=== PATIENT | female | born 1965 | race Caucasian/White ===

== ENCOUNTER 2024-12-17 16:50 | Outpatient (OUT) | payer OTHER, SELFPAY ==
--- OUTSIDE RECORDS SUMMARY | 2020-02-08 14:00 | XMS_ITS | Continuity of Care Document ---
Author Organization [facility] Address [address] [place] [address] Phone Care Team Providers Care Fisher Gill Net Name Role Phone BubbaMayur Lu Unavailable Unavailable Procedures Procedure Date Covid Testing [facility] Covid Testing [facility] Results Test Name Date and Time Measure Units Reference Range Abnormal Flag Status Comments Panel Description: SARS-CoV-2, RADHA Final SARS-CoV- 2, RADHA 020 12:30:00 Not Detected Not Detected Final This test was developed and its performance characteristics determinedby [employer]. This test has not been FDA cleared orapproved. This test has been authorized by FDA under an Emergency UseAuthorization (EUA). This test is only authorized for the duration oftime the declaration that circumstances exist justifying theauthorization of the emergency use of in vitro diagnostic tests fordetection of SARS-CoV-2 virus and/or diagnosis of COVID-19 infectionunder section 564(b)(1) of the Act, 21 U.S.C. 360bbb-3(b)(1), unlessthe authorization is terminated or revoked sooner.When diagnostic testing is negative, the possibility of a falsenegative result should be considered in the context of a patient'srecent exposures and the presence of clinical signs and symptomsconsistent with COVID-19. An individual without symptoms of COVID-19and who is not shedding SARS-CoV-2 virus would expect to have anegative (not detected) result in this assay.Performed by:[facility] ([facility]) Panel Description: SARS-CoV-2 Antibody, IgM [facility] SARS-CoV- 2 Antibody, IgM 020 08:52:00 Negative Negative Final This sample do es not contain detectable SARS-CoV-2 IgM antibodies.This negative result does not rule out SARS-CoV-2 infection.Correlation with epidemiologic risk factors and other clinical andlaboratory findings is recommended. Serologic results should not beused as the sole basis to diagnose or exclude recent [id number].P erformed by:[email or web address] ([employer]) Panel Description: SARS-CoV-2 Antibody, IgG Fin al SARS-CoV- 2 Antibody, IgG 020 07:01:00 Negative Negative Final This sample do es not contain detectable SARS-CoV-2 IgG antibodies.This negative result does not rule out SARS-CoV-2 infection.Correlation with epidemiologic risk factors and other clinical andlaboratory findings is recommended. Serologic results should not beused as the sole basis to diagnose or exclude recent [id number].T his assay was performed using the Smith SARS-CoV-2 IgG assay.Performed by:[email or web address] ([employer]) Advance Directives Directive Yes / No Effective Date File Name No Information Encounters Encounter Description Practice Location Reason(s) For Visit Diagnoses Date Provider Providers Copied on Encounter [facility], [address] [place] [address], [id number], tel:[phone] COVID ECHD Encounter for screening for other viral disease Bubbai DO Merchant. [address], [place], [id number], [place]. tel:[phone] [facility], [address], [place], [id number], tel:[phone] COVID ECHD Encounter for screening for other viral disease Visci DO Merchant. [address], [place], [id number], [place]. tel:[phone] Family History Family Member Type Diagnosis Age At Onset No Information Payers Payer name Insurance type Covered alliance party ID Authoriza tion(s) Medical [facility] [id number] Social History Type Description Quantity Date Captured Comments Alcohol Use Details Unknown Caffeine Use Details Unknown Tobacco Use Status No Information Smoking Status No Information Sex Female Sexual Orientation Straight or heterosexual Gender Identity Female Chief Complaint And Reason For Visit No Information Reason For Referral Reason For Referral No Information History Of Present Illness Encounter Date Complaint History Of Prese nt Illness No Information Functional Status Date Functional Assessmen t No Information Instructions Date Instruction Additional Infor mation No Information Assessments Type Assessment Date assessment Encounter for screening for othe r viral disease Patient Care Teams Name Effective Dates (start - stop) Status Members No Information
--- OUTSIDE RECORDS SUMMARY | 2024-12-17 16:56 | XMS_ITS | Clinical Summary ---
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 Other chronic pain 12/30/2022 Chronic fatigue 12/30/2022 Resolved Problems Problem Noted Date Diagnosed Date Resolved Date Benign essential hypertension 12/30/2022 03/26/2024 Immunizations Immunization Administration Dates Next Due Influenza, Unspecified 04/28/2023 Influenza, injectable, quadrivalent 04/23/2022 Influenza, injectable, quadrivalent, preservativ e free 04/29/2022 Influenza, seasonal, intradermal, preservative f ree 05/01/2020,04/27/2019 Tdap 06/04/2022 Zoster, Recombinant 08/14/2020,05/30/2020 Family History Medical History Relation Name Comments Brain Aneurysm Brother 2 No Known Problems Daughter Heart disease Father Paco Hyperlipidemia Father Paco Cancer Mother Vicenta Diabetes Mother Vicenta Hypertension Mother Vicenta Lung cancer Mother Vicenta Relation Name Status Comments Brother 1 Brother 2 Alive Brother 3 Alive Brother 4 Alive Brother 5 Alive Brother 6 Alive Brother 7 Alive Daughter Alive 1 daughter Father Paco Mother Vicenta Sister Alive 1 sister Social History Tobacco Use Types Packs/Day Years Used Date Smoking Tobacco: Never Smokeless Tobacco: Never Tobacco Cessation:Counseling Given: Not Answered Alcohol Use Standard Drinks/Week Comments Not Currently 4 (1 standard drink = 0.6 oz pure alcohol) caffeine intake : 1-2 cups per day ; coffee Humiliation, Afraid, Rape, and Kick questionnair e Answer Date Recorded Within the last year, have y ou been afraid of your partner or ex-partner? No 06/17/2023 Within the last year, have y ou been humiliated or emotionally abused in other ways by your partner or ex-partner? Patient declined 06/17/2023 Within the last year, have y ou been kicked, hit, slapped, or otherwise physically hurt by your partner or ex-partner? No 06/17/2023 Within the last year, have y ou been raped or forced to have any kind of sexual activity by your partner or ex-partner? No 06/17/2023 Social Connection and Isolat ion Panel [NHANES] Answer Date Recorded In a typical week, how many times do you talk on the phone with family, friends, or neighbors? Patient declined 06/17/2023 How often do you get togethe r with friends or relatives? Patient declined 06/17/2023 How often do you attend chur or holiness services? Patient declined 06/17/2023 Do you belong to any clubs o r organizations such as jew groups, unions, fraternal or athletic groups, or school groups? Yes 06/17/2023 How often do you attend meet ings of the clubs or organizations you belong to? More than 4 times per year 06/17/2023 Are you , , di vorced, , never , or living with a partner? 06/17/2023 AUDIT-C Answer Date Recorded Q1: How often do you have a drink containing alc ohol? 2-4 times a month 06/17/2023 Q2: How many drinks containi ng alcohol do you have on a typical day when you are drinking? 1 or 2 06/17/2023 Q3: How often do you have si x or more drinks on one occasion? Never 06/17/2023 Overall Financial Resource Strain (CARDIA) Answe r Date Recorded How hard is it for you to pa y for the very basics like food, housing, medical care, and heating? Not hard at all 06/17/2023 Hunger Vital Sign Answer Date Recorded Within the past 12 months, y ou worried that your food would run out before you got the money to buy more. Never true 06/17/20 23 Within the past 12 months, t he food you bought just didn't last and you didn't have money to get more. Never true 06/17/2023 PRAPARE - Transportation Answer Date Re corded In the past 12 months, has l ack of transportation kept you from medical appointments or from getting medications? No 05/29 In the past 12 months, has l ack of transportation kept you from meetings, work, or from getting things needed for daily living? No 06/17/2023 Housing Stability Vital Sign Answer Frantz e Recorded In the last 12 months, was t here a time when you were not able to pay the mortgage or rent on time? No 06/17/2023 In the last 12 months, how many places have you lived? 1 06/17/2023 In the last 12 months, was t here a time when you did not have a steady place to sleep or slept in a jail (including now)? No 06/17/2023 Comments Unknown Sex and Gender Information Value Date Recorded Sex Assigned at Not on file Legal Sex Female 7:34 PM EDT Gender Identity Not on file Sexual Orientation Not on file Last Filed Vital Signs Vital Sign Reading Time Taken Comments Blood Pressure 120/70 03/26/2024 10:03 AM EDT Pulse 81 03/26/2024 10:03 AM EDT Temperature 36.2 C (97.2 F) 03/26/2024 10:03 AM EDT Respiratory Rate 17 06/18/2023 8:00 AM EST Oxygen Saturation 98% 03/26/2024 10:03 AM EDT Inhaled Oxygen Concentration - - Weight 67.1 kg (148 lb) 03/26/2024 10:03 AM EDT Height 165.1 cm (5' 5 ) 03/26/2024 10:03 AM EDT Body Mass Index 24.63 03/26/2024 10:03 AM EDT Plan of Treatment Health Maintenance Due Date Last Done Comments CT Colonography 1965 Colonoscopy 1965 FIT 1964 FOBT 1965 Sigmoidoscopy 1964 Pap Smear 1985 Cervical Cancer Screening 1994 HPV/Cotest 1994 Mammogram 08/13/2023 08/13/2022, 07/18/2020 Influenza Vaccine (Season Ended) 2025 04/28/2023, 04/29/2022, 04/23/2022, Additional history exists Colorectal Cancer Screening 04/25/2027 FIT-DNA 04/25/2027 04/25/2024, 05/29, 06/20/2020 Procedures Procedure Name Priority Date/Time Associated Diagnosis Comments LAB COLOGUARD COLON CANCER SCREEN Routine 04/25/2024 10:00 AM EDT Encounter for screening for malignant neoplasm of colon BI MAMMOGRAM SCREENING BILATERAL Routine 08/13/2022 Encounter for screening mammogram for malignant neoplasm of breast Encounter for immunization Encounter for general adult medical examination without abnormal findings from Last 3 Months or Most Recently Relevant to Health Maintenance Results * Cologuard?? colon cancer screening (04/25/2024 10:00 AM EDT) NONINV COLON CA DNA+OCC BLD SCRN STL-IMP Negative Negative 05/01/2024 11:40 AM EDT [facility] (CLIA #:[id number]) Comment: NEGATIVE TEST RESULT. A negative Cologuard result indicates a low likelihood that a colorectal cancer (CRC) or advanced adenoma (adenomatous polyps with more advanced pre-malignant features) is present. The chance that a person with a negative Cologuard test has a colorectal cancer is less than 1 in 1500 (negative predictive value >99.9%) or has an advanced adenoma is less than 5.3% (negative predictive value 94.7%). These data are based on a prospective cross-sectional study of 10,000 individuals at average risk for colorectal cancer who were screened with both Cologuard and colonoscopy. (Samantha Kim al, N Engl J Med 2014;370(14):6135-7005) The normal value (reference range) for this assay is negative. COLOGUARD RE-SCREENING RECOMMENDATION: Periodic colorectal cancer screening is an important part of preventive healthcare for asymptomatic individuals at average risk for colorectal cancer. Following a negative Cologuard result, the [place] [employer] Society and U.S. Multi-Society Task Force screening guidelines recommend a Cologuard re-screening interval of 3 years. References: [place] [employer] Guideline for Colorectal Cancer Screening: https://www.cancer.org/cancer/dezkc-ltkxjo-fdvwoa/omdngmysc-fyoccbxba-msrsnmg/ac s-rec ommendations.html.; Gavin DK, Gela CR, Rima DotsonK, Colorectal Cancer Screening: Recommendations for Physicians and Patients from the U.S. Multi-Society Task Force on Colorectal Cancer Screening , Am J Gastroenterology 2017; 112:2607-9176. TEST DESCRIPTION: Composite algorithmic analysis of stool DNA-biomarkers with hemoglobin immunoassay. Quantitative values of individual biomarkers are not reportable and are not associated with individual biomarker result reference ranges. Cologuard is intended for colorectal cancer screening of adults of either sex, 45 years or older, who are at average-risk for colorectal cancer (CRC). Cologuard has been approved for use by the U.S. FDA. The performance of Cologuard was established in a cross sectional study of average-risk adults aged 50-84. Cologuard performance in patients ages 45 to 49 years was estimated by sub-group analysis of near-age groups. Colonoscopies performed for a positive result may find as the most clinically significant lesion: colorectal cancer [4.0%], advanced adenoma (including sessile serrated polyps greater than or equal to 1cm diameter) [20%] or non- advanced adenoma [31%]; or no colorectal neoplasia [45%]. These estimates are derived from a prospective cross-sectional screening study of 10,000 individuals at average risk for colorectal cancer who were screened with both Cologuard and colonoscopy. (Samantha Kim al, N Engl J Med 2014;370(14):2816-7714.) Cologuard may produce a false negative or false positive result (no colorectal cancer or precancerous polyp present at colonoscopy follow up). A negative Cologuard test result does not guarantee the absence of CRC or advanced adenoma (pre-cancer). The current Cologuard screening interval is every 3 years. ([place] [employer] Society and U.S. Multi-Society Task Force). Cologuard performance data in a 10,000 patient pivotal study using colonoscopy as the reference method can be accessed at the following location: www.[employer].com/results. Additional description of the Cologuard test process, warnings and precautions can be found at www.cologuard.com. Stool specimen (specimen) 04/25/2024 10:00 AM EDT 04/28/2024 8:14 AM EDT us Edith Fuentes NP LAB MOLECULAR DIAGNOSTICS OR DERABLES Final Result .[facility] (CLIA #:[id number]) [address] [place] [address] [phone] [facility] (CLIA #:[id number]) [address] [place] [address] * Bilateral screening mammogram (08/13/2022) Anatomical Region Laterality Modality Breast Bilateral Mammography Impressions 08/13/2022 12:00 AM EST NO MAMMOGRAPHIC EVIDENCE OF MALIGNANCY. ROUTINE FOLLOW-UP IS RECOMMENDED IN ONE YEAR. RESULT CODE: 2 Benign Findings(s) DENSITY CODE: 2 (approximately 25-50% glandular) FOLLOW UP: 1YR The false-negative rate of mammography is approximately 10-percent. Management of a palpable abnormality must be based on clinical grounds. Patient was entered into a reminder system with a target due date for the next mammogram. Impression dictated by: Maddi Jay M.D.08/13/2022 7:40 AM Dictation Location: [facility] Transcribed By: ENEDINA 08/13/22739 Dictated By: Maddi Jay MD 08/13/2237 Signed By: <Electronically signed by MD Maddi Jay in OV> 08/13/22739 Narrative 08/13/2022 12:00 AM EST PERFORMED AT [facility] LOCATION:[place] [address] [facility] [place] [id number] Mammography Report Signed Patient: Andreea Bacon MR#: [id number] : 1965 Acct:[id number] Age/Sex: 56 / F ADM Date: 08/12/22 Loc: [place] Room: Type: SUELLEN MINORI Attending Dr: Edith Fuentes CART DRIVER-C Copies to: KARLIE Malave Ordering Provider: KARLIE Malave Date of Service: 08/12/22 MM/MM screening mammo BI w/CAD: screening;Encounter for screening mammogram for malignant ne CLINICAL DATA: Screening for malignancy. BILATERAL SCREENING MAMMOGRAMS - FULL FIELD DIGITAL WITH TOMOSYNTHESIS AND CAD Tomosynthesis craniocaudal and mediolateral oblique views of both breasts were obtained using low- dose digital technique. Comparison is made to the prior study from July 17, 2020. This examination was reviewed with the aid of CAD. There is moderate scattered fibroglandular density. Benign calcifications are present. There are no developing masses, typically malignant calcifications or architectural distortion. There has been no significant interval change. MM/MM screening mammo BI w/CAD Procedure Note CONVERSION, GENERIC - 01/31/2023 PERFORMED AT [facility] LOCATION:[place] [id number] Mammography Report Signed Patient: Andreea Bacon EMR#: [id number] : 1965Acct:[id number] Age/Sex: 56 / FADM Date: 08/12/22 Loc: [place] Room:Type: SUELLEN MINORI Attending Dr: Edith Fuentes CART DRIVER-C Copies to: KARLIE Malave Ordering Provider: KARLIE Malave Date of Service: 08/12/22 MM/MM screening mammo BI w/CAD:screening;Encounter for screening mammogram for malignant ne CLINICAL DATA: Screening for malignancy. BILATERAL SCREENING MAMMOGRAMS - FULL FIELD DIGITAL WITH TOMOSYNTHESIS ANDCAD Tomosynthesis craniocaudal and mediolateral oblique views of both breastswere obtained using low- dose digital technique. [facility] This examination was reviewed with the aid of CAD. There is moderate scattered fibroglandular density. Benign calcificationsare present. There are no developing masses, typically malignant calcifications or architecturaldistortion. There has been no significant interval change. MM/MM screening mammo BI w/CAD IMPRESSION: NO MAMMOGRAPHIC EVIDENCE OF MALIGNANCY. ROUTINE FOLLOW-UP IS RECOMMENDED IN ONE YEAR. RESULT CODE: 2 Benign Findings(s) DENSITY CODE: 2 (approximately 25-50% glandular) FOLLOW UP: 1YR The false-negative rate of mammography is approximately 10-percent. Management of a palpable abnormality must be based on clinical grounds. Patient was entered into a reminder system with a target due date for thenext mammogram. Impression dictated by: Maddi Jay M.D.08/13/2022 7:40 AM Dictation Location: [facility] Transcribed By: [facility] 08/13/22 0740 Dictated By: Maddi Jay MD 08/13/22 0737 Signed By: <Electronically signed by MD Maddi Jay in OV> 08/13/22 0740 us Edith Hannah Case CART DRIVER IMG BI PROCEDURES Final Resu lt from Last 3 Months or Most Recently Relevant to Health Maintenance Insurance [employer] Care Teams Hi Teacher Relationship Specialty Start Date End Date Ashley Colon MD [address], [place] [id number] PCP - General Family Medicine 12/24/22 Ashley Colon MD [address] [place] [address] PCP - Medical [place] [employer] 08/16/15 07/27/99 Edith Fuentes NP [address] [place] [address] Nurse Practitioner Family Medicine 12/24/22
--- OUTSIDE RECORDS SUMMARY | 2024-12-17 16:56 | XMS_ITS | Encounter Summary ---
Author Organization [facility] Address [address] [place] [address] Care Team Providers Care Passenger Tire Inspector Name Role Phone Ashley Colon MD Primary Care Provider [phone] Edith Fuentes NP Unavailable [phone] Ashley Colon MD Unavailable [phone] Encounter Details Date Type Department Care Team (Late st Contact Info) Description 03/30/2024 Orders Only [facility] [address] [place] [id number] Edith Fuentes NP [address] [place] [address] Social History Tobacco Use Types Packs/Day Years Used Date Smoking Tobacco: Never Smokeless Tobacco: Never Alcohol Use Standard Drinks/Week Comments Not Currently [...] 06/17/2023 How often do you attend chur ch or jewish services? Patient declined 06/17/2023 Do you belong to any clubs o r organizations such as muslim groups, unions, fraternal or athletic groups, or [...] place to sleep or slept in a usp (including now)? No 06/17/2023 Comments Unknown Sex and Gender Information Value Date Recorded Sex Assigned at Not on file Legal Sex Female 7:34 PM EDT Gender Identity Not on file Sexual Orientation Not on file documented as of this encounter Plan of Treatment Not on file documented as of this encounter Procedures Procedure Name Priority Date/Time Associated Diagnosis Comments PROTHROMBIN TIME-INR Routine 03/26/2024 11:29 AM EDT CBC Routine 03/26/2024 11:29 AM EDT BASIC METABOLIC PANEL Routine 03/26/2024 11:29 AM EDT documented in this encounter Results * Basic metabolic panel (03/26/2024 11:29 AM EDT) Blood Venous blood specimen / Unknown Edith L [facility] RADIOLOGY DIRECTOR LAB BLOOD ORDERABLES Final R esult * Protime-INR (03/26/2024 11:29 AM EDT) Blood Venous blood specimen / Unknown Edith [facility] RADIOLOGY DIRECTOR LAB BLOOD ORDERABLES Final R esult * CBC (03/26/2024 11:29 AM EDT) Blood Venous blood specimen / Unknown Edith [facility] RADIOLOGY DIRECTOR LAB BLOOD ORDERABLES Final R esult documented in this encounter Visit Diagnoses Not on filedocumented in this encounter Care Teams Passenger Tire Inspector Relationship Specialty Start Date End Date Ashley Colon MD [address] [place] [address] PCP - General Family Medicine 12/24/22 Ashley Colon MD [address] [place], [place] [id number] PCP - Medical [place] [employer] 08/16/15 07/27/99 Edith Fuentes NP [address] [place], [place] [phone] Nurse Practitioner Family Medicine 12/24/22 documented as of this encounter
--- OUTSIDE RECORDS SUMMARY | 2024-12-17 16:56 | XMS_ITS | Encounter Summary ---
Author Organization [facility] Address [address] [place] [address] Care Team Providers Care Fryer Operator Name Role Phone Ashley Colon MD Primary Care Provider [phone] Edith Fuentes [employer] VICE PRESIDENT Unavailable [phone] Ashley Colon MD Unavailable [phone] Encounter Details Date Type Department Care Team (Late st Contact Info) Description 06/17/2023 Orders Only [facility] [address] [place] [address] Justin Gross, DO [address] [place] [address] Social History Tobacco Use Types Packs/Day Years Used Date Smoking Tobacco: Never Smokeless Tobacco: Never Alcohol Use Standard Drinks/Week Comments Never 0 (1 standard drink = 0.6 oz pur e alcohol) Humiliation, Afraid, Rape, and Kick questionnair e [...] often do you attend chur ch or oriental orthodox services? Patient declined 06/17/2023 Do you belong to any clubs o r organizations such as orthodoxy groups, unions, fraternal or athletic groups, or [...] place to sleep or slept in a custodial (including now)? No 06/17/2023 Comments Unknown Sex and Gender Information Value Date Recorded Sex Assigned at Not on file Legal Sex Female 7:34 PM EDT Gender Identity Not on file Sexual Orientation Not on file COVID-19 Exposure Response Date Recorded In the last 10 days, have yo u been in contact with someone who was confirmed or suspected to have Coronavirus/COVID-19? No / Unsure 06/17/2023 7:35 AM EST documented as of this encounter Functional Status * Audit-C Score Answer Date of Assessment Author 2 06/17/2023 7:34 AM EST Mychart, Generic * Q1: How often do you have a drink containing alcohol? Answer Date of Assessment Author 2-4 times a month 06/17/2023 7:34 AM EST Mychart , Generic * Q2: How many drinks containing alcohol do you have on a typical day when you are drinking? Answer Date of Assessment Author 1 or 2 06/17/2023 7:34 AM EST Mychart, Generic * Q3: How often do you have six or more drinks on one occasion? Answer Date of Assessment Author Never 06/17/2023 7:34 AM EST Mychart, Generic documented as of this encounter Plan of Treatment Not on file documented as of this encounter Procedures Procedure Name Priority Date/Time Associated Diagnosis Comments NICOTINE METABOLITE, QUAL ([facility]) Routine 03/26/2023 9:22 AM EDT CBC Routine 03/26/2023 9:22 AM EDT TSH Routine 03/26/2023 9:22 AM EDT LIPID PANEL Routine 03/26/2023 9:22 AM EDT COMPREHENSIVE METABOLIC PANEL Routine 03/26/2023 9:22 AM EDT documented in this encounter Results * CBC (03/26/2023 9:22 AM EDT) Blood Venous blood specimen / Unknown us Justin P Kuns DO LAB BLOOD ORDERABLES Final Resul t * Comprehensive metabolic panel (03/26/2023 9:22 AM EDT) Blood Venous blood specimen / Unknown us Justin Sanchezs DO LAB BLOOD ORDERABLES Final Resul t * Lipid panel (03/26/2023 9:22 AM EDT) Blood Venous blood specimen / Unknown us Justin Sanchezs DO LAB BLOOD ORDERABLES Final Resul t * TSH (03/26/2023 9:22 AM EDT) Blood Venous blood specimen / Unknown Justin Gross DO LAB BLOOD ORDERABLES Final Resul t * NICOTINE METABOLITE, QUAL ([facility]) (03/26/2023 9:22 AM EDT) Justin Gross DO LAB BLOOD ORDERABLES Final Resul t documented in this encounter Visit Diagnoses Not on filedocumented in this encounter Care Teams Fryer Operator Relationship Specialty Start Date End Date Ashley Colon MD [address] [place] [address] PCP - General Family Medicine 12/24/22 Ashley Colon MD [address], [place] [id number] PCP - Medical [place] [employer] 08/16/15 07/27/99 Edith Fuentes NP [address], [place] [phone] Nurse Practitioner Family Medicine 12/24/22 documented as of this encounter
--- NOTE | 2024-12-17 17:00 | US_ITS ---
[address] [address] Patient Name: BALWINDER YE MRN: [id number] date: 1965 Sex: F Assigned Patient Location: US Current Patient Location: US Accession/Order Number: [id number] Exam Date: 12/17/2024 18:12 Report Date: 12/17/2024 18:13 At the request of: EMPERATRIZ DAWKINS Procedure: US renal BI Bilateral Renal Ultrasound HISTORY: Left flank pain for 3 days COMPARISON: None RIGHT kidney measures 9.4 cm. LEFT kidney measures 9.8 cm. Hydronephrosis: None RENAL STONE: No shadowing renal calculus is seen. RENAL LESIONS: No renal lesion identified. URINARY BLADDER: Unremarkable REPRODUCTIVE STRUCTURES Not assessed anechoic, right hepatic cyst. IMPRESSION : No hydronephrosis. Impression dictated by: Merrill Gonzalez M.D. 12/17/2024 6:13 PM Dictation Location: [place] [address] Electronically authenticated by: [id number] Y Date: 12/17/2024 18:13
--- NOTE | 2024-12-17 17:01 | XR_ITS ---
The [address] [address] Patient Name: BALWINDER YE MRN: [id number] date: 1965 Sex: F Assigned Patient Location: US Current Patient Location: US Accession/Order Number: [id number] Exam Date: 12/17/2024 18:15 Report Date: 12/17/2024 18:16 At the request of: EMPERATRIZ DAWKINS Procedure: XR abdomen 1V Single view of abdomen COMPARISON: None HISTORY: Left abdominal pain. THORAX: Lung bases unremarkable. FREE AIR: Supine position limits assessment BOWEL: No gaseous intestinal distention. STOOL: Moderate burden of stool throughout the colon. RENAL STONES: No significant stones present. VASCULAR CALCIFICATIONS: Unremarkable SOFT TISSUE: Unremarkable BONES: Unremarkable POSTSURGICAL CHANGES: None XR/XR abdomen 1V IMPRESSION: Moderate constipation Impression dictated by: Merrill Gonzalez M.D. 12/17/2024 6:16 PM Dictation Location: [facility] Electronically authenticated by: [id number] Y Date: 12/17/2024 18:16
== END 2024-12-17 16:51 | disposition home or self-care (01) ==
LOC: US 16:54
PROVIDERS: PCP Nurse Practitioner Family; Visit Provider Physician Assistant
DX: R10.9 Unspecified abdominal pain (principal); K59.00 Constipation, unspecified
CPT/HCPCS: 74018; 76775